=== PATIENT | female | born 1930 ===

== ENCOUNTER 2020-04-22 08:39 | Emergency (ER) | payer OTHER ==
[~2020-04-22] VITALS: Ht 149.9 cm; Wt 48.1 kg
== END 2020-04-22 11:54 | disposition home or self-care (01) ==
LOC: ER 08:39
DX: M54.5 Low back pain (principal); R07.0 Pain in throat; M54.2 Cervicalgia; Z03.818 Encounter for observation for suspected exposure to other biological agents ruled out